=== PATIENT | male | born 1970 | race Caucasian/White ===

== ENCOUNTER 2016-07-07 20:49 | Emergency (ER) | payer OTHER ==
[2016-07-07 22:43] VITALS: BP 128/83
== END 2016-07-07 22:43 | disposition home or self-care (01) ==
LOC: ED 20:49
DX: M54.5 Low back pain (principal); G40.909 Epilepsy, unspecified, not intractable, without status epilepticus

== ENCOUNTER 2017-08-08 18:44 | Emergency (ER) | payer OTHER ==
[~2017-08-08] VITALS: Ht 175.3 cm; Wt 73.9 kg
[2017-08-08 19:00] VITALS: Ht 175.3 cm; Wt 73.9 kg
[2017-08-08 19:44] VITALS: BP 132/90
== END 2017-08-08 19:44 | disposition home or self-care (01) ==
LOC: ED 18:44
DX: Z76.0 Encounter for issue of repeat prescription (principal)

== ENCOUNTER 2017-08-26 13:19 | Emergency (ER) | payer OTHER ==
[~2017-08-26] VITALS: Ht 175.3 cm; Wt 73.0 kg
[2017-08-26 13:26] VITALS: Ht 175.3 cm; Wt 73.0 kg
[2017-08-26 15:57] VITALS: BP 116/71
== END 2017-08-26 15:57 | disposition home or self-care (01) ==
LOC: ED 13:19
DX: S16.1XXA Strain of muscle, fascia and tendon at neck level, initial encounter (principal); S39.012A Strain of muscle, fascia and tendon of lower back, initial encounter; S09.90XA Unspecified injury of head, initial encounter; W01.0XXA Fall on same level from slipping, tripping and stumbling without subsequent striking against object, initial encounter; Y93.E1 Activity, personal bathing and showering; Y92.89 Other specified places as the place of occurrence of the external cause; Y99.8 Other external cause status

== ENCOUNTER 2017-09-20 14:29 | Emergency (ER) | payer OTHER ==
[~2017-09-20] VITALS: Ht 175.3 cm; Wt 72.6 kg
[2017-09-20 15:23] VITALS: Ht 175.3 cm; Wt 72.6 kg
[2017-09-20 16:57] VITALS: BP 119/94
== END 2017-09-20 16:57 | disposition home or self-care (01) ==
LOC: ED 14:29
DX: Z76.0 Encounter for issue of repeat prescription (principal); F41.9 Anxiety disorder, unspecified; Z86.69 Personal history of other diseases of the nervous system and sense organs